=== PATIENT | male | born 1960 | race Caucasian/White ===

== ENCOUNTER 2019-02-28 12:10 | Emergency (ER) | payer SELFPAY ==
[~2019-02-28] VITALS: Ht 157.5 cm; Wt 78.0 kg
[2019-02-28] MEDS ORDERED: KETOROLAC 30MG/ML VIAL IM ONE (12:45)
[2019-02-28 13:38] VITALS: BP 125/78
== END 2019-02-28 13:40 | disposition home or self-care (01) ==
LOC: ER 12:15
DX: M54.30 Sciatica, unspecified side (principal); E11.9 Type 2 diabetes mellitus without complications
CPT/HCPCS: 73502; 96372; 99283; J1885

== ENCOUNTER 2019-04-03 19:52 | Emergency (ER) | payer MEDICAID ==
[~2019-04-03] VITALS: Ht 162.6 cm; Wt 75.0 kg
[2019-04-03 20:05] VITALS: BP 120/82
[2019-04-03] MEDS ORDERED: LIDOCAINE HCL/PF 1% 10 MG/ML 5ML VIAL IJ ONE (21:00)
[2019-04-03] MEDS ORDERED: TETANUS, DIPHTHERIA, PERTUSSIS VAC/PF 0.5ML (>7YR OLD) IM ONE (21:00)
[2019-04-03] MEDS ORDERED: BACITRACIN ZINC OINT UDPKT TOP ONE (21:00)
[2019-04-03] MEDS ORDERED: HYDROCODONE/ACETAMINOPHEN 5/325MG TABLET PO ONE ×2 (21:00)
== END 2019-04-03 22:38 | disposition home or self-care (01) ==
LOC: ER 19:52
DX: M79.675 Pain in left toe(s) (principal)
CPT/HCPCS: 11730; 90471; 90715; 99283; A4217; J3490; Z7610

== ENCOUNTER 2025-04-18 01:09 | Emergency (ER) | payer MEDICARE, MEDICAID ==
[~2025-04-18] VITALS: Ht 165.1 cm; Wt 75.3 kg
[~2025-04-18 01:09] MED LIST: DEXTL PO
[2025-04-18 01:20] VITALS: TEMP 36.9; O2SAT 99
[2025-04-18 01:47] LABS: BASOPHILS % 0.6 % (0.0-2.0); EOSINOPHILS % 2.0 % (0.0-5.0); HEMATOCRIT. 41.6 % (42.0-52.0); HEMOGLOBIN. 14.8 g/dL (14.0-18.0); LYMPHOCYTES % 38.2 % (20.0-50.0); MEAN PLATELET VOLUME 8.3 fl (7.4-10.4); MONOCYTES % 6.5 % (2.0-8.0); NEUTROPHILS % 52.7 % (40.0-76.0); PLATELET 212 x1000/uL (130-400); RED BLOOD CELL COUNT 4.56 mill/uL (4.7-6.1); RED CELL DISTRIBUTION WIDTH 13.5 % (11.6-14.6)
[2025-04-18 01:59] LABS: CREATININE 0.9 mg/dL (0.6-1.3); UREA NITROGEN BLOOD 18 mg/dL (9-23)
[2025-04-18 02:00] LABS: ETHANOL BLOOD < 10 mg/dL (<10)
[2025-04-18 02:01] LABS: TROPONIN I HIGH SENSITIVITY 26 ng/L (3.0-53)
[2025-04-18] MEDS ORDERED: GUAI600T26 MT (04:19)
[2025-04-18 04:43] VITALS: BP 114/62; PULSE 59; RESP 14; O2SAT 99
== END 2025-04-18 04:47 | disposition home or self-care (01) ==
LOC: ER 02:46
DX: R05.1 Acute cough (principal); E11.9 Type 2 diabetes mellitus without complications; I11.0 Hypertensive heart disease with heart failure; Z79.899 Other long term (current) drug therapy
CPT/HCPCS: 36415; 71045; 80048; 80320; 83880; 84484; 85025; 93005; 99285; G0480